=== PATIENT | female | born 1935 | race Asian ===

== ENCOUNTER 2023-07-15 10:10 | Observation (INO) | payer OTHER, MEDICARE ==
[~2023-07-15] VITALS: Ht 154.9 cm; Wt 58.5 kg
[2023-07-15 10:32] VITALS: BP 147/75; PULSE 70; RESP 18; TEMP 98.1; O2SAT 95
[2023-07-15 11:37] LABS: BASOPHILS % (AUTO) 0.6 % (0.0-2.0); EOSINOPHILS # (AUTO) 0.3 K/uL (0-0.4); EOSINOPHILS % (AUTO) 4.9 % (0.0-4.0); HEMATOCRIT 42.5 % (36-48); HEMOGLOBIN 13.7 g/dL (12.0-16.0); LYMPHOCYTES % (AUTO) 18.9 % (20.5-51.1); MEAN CORPUSCULAR HEMOGLOBIN 29 pg (27-31); MEAN CORPUSCULAR HGB CONC 32 g/dL (33-37); MEAN CORPUSCULAR VOLUME 89.1 fL (80-94); MONOCYTES # (AUTO) 0.5 K/uL (0.8-1.0); MONOCYTES % (AUTO) 8.5 % (1.7-9.3); NEUTROPHILS # (AUTO) 3.7 K/uL (1.8-7.7); NEUTROPHILS % (AUTO) 67.1 % (42.2-75.2); PLATELET COUNT (AUTO) 141 K/uL (140-450); RED BLOOD CELL COUNT(AUTO) 4.77 MIL/uL (4.20-5.40); RED CELL DISTRIBUTION WIDTH 15.5 % (11.6-13.7); WHITE BLOOD COUNT (AUTO) 5.4 K/uL (4.8-10.8)
[2023-07-15 12:16] LABS: INR 1.06 (0.8-1.2); PARTIAL THROMBOPLASTIN TIME 27.9 secs (22-35.6); PROTHROMBIN TIME 11.1 secs (10.8-13.4)
[2023-07-15 12:18] LABS: ALANINE AMINOTRANSFERASE 25 U/L (12-78); ALKALINE PHOSPHATASE 89 U/L (50-136); ANION GAP 6.1 (8-16); ASPARTATE AMINOTRANSFERASE 38 U/L (15-37); CALCIUM 9.4 mg/dL (8.5-10.1); CARBON DIOXIDE 31.3 mmol/L (21-32); CHLORIDE 107 mmol/L (98-107); GLUCOSE 167 mg/dL (74-106); POTASSIUM 4.4 mmol/L (3.5-5.1); SODIUM SERUM 140 mmol/L (136-145); TOTAL BILIRUBIN 0.8 mg/dL (0.0-1.0); TOTAL PROTEIN, SERUM 7.6 g/dL (6.4-8.2); UREA NITROGEN, BLOOD 14 mg/dL (7-18)
[2023-07-15] MEDS ORDERED: ACETAMINOPHEN EXTRA STRENGTH 500 MG TAB PO ONE (12:55)
[2023-07-15] MEDS: MORPHINE SULFATE 2 MG/ML SYR IVP PRN (13:00)
[2023-07-15] MEDS ORDERED: LORazepam 2 MG/ML VIAL IVP PRN (14:10)
[2023-07-15] MEDS ORDERED: MORPHINE SULFATE 2 MG/ML SYR IVP PRN (14:10)
[2023-07-15] MEDS ORDERED: ONDANSETRON 4 MG/2 ML VIAL IVP PRN (14:10)
[2023-07-15] MEDS ORDERED: ACETAMINOPHEN 325 MG TAB PO PRN (14:10)
[2023-07-15] MEDS ORDERED: hydrALAZINE 20 MG/ML VIAL IVP PRN (14:15)
[2023-07-15 16:17] VITALS: PULSE 77; RESP 17; O2SAT 95
[2023-07-15 16:35] VITALS: BP 163/79; PULSE 77; RESP 18; TEMP 98.4; O2SAT 92
[2023-07-15] MEDS: FUROSEMIDE 20 MG/2 ML VIAL IVP SCH (16:41)
[2023-07-15 16:47] VITALS: PULSE 75
[2023-07-15] MEDS ORDERED: ALBUTEROL SULFATE/IPRATROPIU 3 ML SOL IH PRN (17:45)
[2023-07-15 20:00] VITALS: BP 122/75; PULSE 76; PULSE 78; RESP 18; TEMP 98; O2SAT 98
[2023-07-15 20:20] VITALS: PULSE 79; RESP 18; O2SAT 100; O2SAT 99
[2023-07-15] MEDS: METOPROLOL 25 MG TAB PO SCH (21:56)
[2023-07-16] VITALS (11 sets, daily range): BP systolic 106–151; BP diastolic 62–93; PULSE 76–121; RESP 18; TEMP 96.9–98.8; O2SAT 91–99
[2023-07-16 06:24] LABS: BASOPHILS % (AUTO) 0.8 % (0.0-2.0); EOSINOPHILS # (AUTO) 0.5 K/uL (0-0.4); HEMATOCRIT 39.3 % (36-48); HEMOGLOBIN 13.2 g/dL (12.0-16.0); LYMPHOCYTES # (AUTO) 1.3 K/uL (2.5-16.5); LYMPHOCYTES % (AUTO) 20.6 % (20.5-51.1); MEAN CORPUSCULAR HEMOGLOBIN 30 pg (27-31); MEAN CORPUSCULAR HGB CONC 34 g/dL (33-37); MEAN CORPUSCULAR VOLUME 88.1 fL (80-94); MONOCYTES # (AUTO) 0.5 K/uL (0.8-1.0); MONOCYTES % (AUTO) 7.8 % (1.7-9.3); NEUTROPHILS # (AUTO) 3.9 K/uL (1.8-7.7); NEUTROPHILS % (AUTO) 62.8 % (42.2-75.2); PLATELET COUNT (AUTO) 135 K/uL (140-450); RED BLOOD CELL COUNT(AUTO) 4.46 MIL/uL (4.20-5.40); RED CELL DISTRIBUTION WIDTH 15.4 % (11.6-13.7); WHITE BLOOD COUNT (AUTO) 6.2 K/uL (4.8-10.8)
[2023-07-16 06:59] LABS: ALANINE AMINOTRANSFERASE 18 U/L (12-78); ALBUMIN 2.8 g/dL (3.4-5.0); ALKALINE PHOSPHATASE 87 U/L (50-136); ANION GAP 10.1 (8-16); ASPARTATE AMINOTRANSFERASE 29 U/L (15-37); CALCIUM 8.5 mg/dL (8.5-10.1); CARBON DIOXIDE 30.7 mmol/L (21-32); CHLORIDE 106 mmol/L (98-107); CREATININE 0.9 mg/dL (0.6-1.3); GLUCOSE 114 mg/dL (74-106); POTASSIUM 3.8 mmol/L (3.5-5.1); SODIUM SERUM 143 mmol/L (136-145); TOTAL BILIRUBIN 1.1 mg/dL (0.0-1.0); TOTAL PROTEIN, SERUM 7.2 g/dL (6.4-8.2); UREA NITROGEN, BLOOD 13 mg/dL (7-18)
[2023-07-16] MEDS: FUROSEMIDE 20 MG/2 ML VIAL IVP SCH (08:09)
[2023-07-16] MEDS: METOPROLOL 25 MG TAB PO SCH (08:10)
[2023-07-16] MEDS: MORPHINE SULFATE 2 MG/ML SYR IVP PRN (08:10)
[2023-07-16] MEDS ORDERED: ECOTRIN 81 MG TABEC PO SCH (09:00)
[2023-07-16] MEDS ORDERED: METO25TA PO (09:05)
[2023-07-16] MEDS ORDERED: AMIODARONE 200 MG TAB PO SCH (14:36)
[2023-07-16] MEDS: AMIODARONE 200 MG TAB PO SCH (20:16)
[2023-07-16] MEDS: METOPROLOL 50 MG TAB PO SCH (20:16)
[2023-07-16] MEDS: APIXABAN 2.5 MG TAB PO SCH (20:17)
[2023-07-16] MEDS ORDERED: diphenhydrAMINE 50 MG/ML VIAL IVP PRN (20:50)
[2023-07-17] VITALS (10 sets, daily range): BP systolic 104–130; BP diastolic 62–67; PULSE 58–76; RESP 16–18; TEMP 97.1–97.7; O2SAT 96–99
[2023-07-17] MEDS: FUROSEMIDE 20 MG/2 ML VIAL IVP SCH (08:03)
[2023-07-17] MEDS: AMIODARONE 200 MG TAB PO SCH (08:04)
[2023-07-17] MEDS: METOPROLOL 50 MG TAB PO SCH (08:04)
[2023-07-17] MEDS: APIXABAN 2.5 MG TAB PO SCH (08:06)
[2023-07-17] MEDS ORDERED: METO-625 PO (16:00)
[2023-07-17] MEDS ORDERED: APIX5TAB PO (16:00)
[2023-07-17] MEDS ORDERED: AMIO200T62 PO (16:00)
[2023-07-17] MEDS ORDERED: FURO-572 PO (16:02)
== END 2023-07-17 17:27 | disposition home or self-care (01) ==
LOC: MED 10:10 → INTOOBSV 14:12 → MED 14:12 → MTU 14:12
PROVIDERS: ADMIT Hospitalist; ATTEND Hospitalist
DX: R07.89 Other chest pain (principal); F41.9 Anxiety disorder, unspecified; I48.92 Unspecified atrial flutter; I25.10 Atherosclerotic heart disease of native coronary artery without angina pectoris; I10 Essential (primary) hypertension; Z85.3 Personal history of malignant neoplasm of breast; Z95.1 Presence of aortocoronary bypass graft; Z90.11 Acquired absence of right breast and nipple; Z79.899 Other long term (current) drug therapy
CPT/HCPCS: 36415; 71045; 80053; 83735; 83880; 84484; 85025; 85379; 85610; 85730; 87081; 93005; 94760; 96374; 96375; 96376; 99285; C8929; G0378; J0360; J1200; J1940; J2270; J2405